=== PATIENT | female | born 1980 | race Caucasian/White ===

== ENCOUNTER 2016-05-08 23:59 | Emergency (ER) | payer BC ==
[~2016-05-08] VITALS: Ht 152.4 cm; Wt 107.5 kg
[~2016-05-08 23:59] MED LIST: DIAZ-90 PO
[2016-05-09 01:10] VITALS: Ht 152.4 cm; Wt 107.5 kg
[2016-05-09 05:25] VITALS: BP 139/94; PULSE 85; RESP 18; TEMP 97.9
[2016-05-09] MEDS ORDERED: LIDOCAINE/MYLANTA 40 ML BTL PO STA (06:11)
[2016-05-09] MEDS ORDERED: SOD CHLORIDE 0.9% 1,000 ML IV STA (06:11)
[2016-05-09] MEDS ORDERED: ONDANSETRON 4 MG INJ IV STA (06:11)
--- NOTE | 2016-05-09 06:23 | ERD ---
ER Documentation Chief Complaint Date/Time DATE: 05/09/16 Chief Complaint Abdominal pain left side and gastric reflux HPI The patient is a 35-year-old female who presents to the Emergency Department with complaint of epigastric/left upper quadrant abdominal pain. The patient reports that her symptoms have been intermittent over the past several months, worsening over the past four months, and occurring more frequently over the past two weeks. She denies any exacerbation or relieving factors. Denies any change in symptoms with food, exercise, movement, bearing down, bowel movements. She describes the pain as burning in nature that sometimes radiates through to her back. It is associated with some nausea, but no episodes of vomiting. She also notes that she feels like she has "a lot of gas, but it doesn't always come out" unless she is having a bowel movement. She has tried several home-therapies to assist in her symptoms, including ingestion of charcoal pills, tears, giovany, mint, with no significant alleviation of symptoms. The patient does state that she saw her primary medical provider regarding these symptoms in November, at which time she was told that it's likely because she is "retaining too much gas." At that time, her PMD kandi some labs, but never called the patient back with her results. The patient does note that she has been experiencing the same symptoms on and off for the past several years, and was seen in this Emergency Department for the same symptoms in 2012. She denies any chest pain, palpitations, shortness of breath , diarrhea, dizziness, weakness, fevers, chills. Denies black or bloody stools. Denies dysuria, flank pain, urinary frequency, hematuria, or vaginal discharge. ROS All systems reviewed and are negative except as per history of present illness. Medications Home Meds Active Scripts Famotidine* (Pepcid*) 20 Mg Tablet, 20 MG PO BID, #30 TAB Prov:JEANINE JIMENEZ PA-C 05/09/16 Hydrocodone/Acetaminophen (Kelly 5-325 Tablet) 1 Each Tablet, 1 EACH PO Q6, #12 TAB Prov:JEANINE JIMENEZ PA-C 05/09/16 Simethicone* (Anti-Gas/80*) 80 Mg Tab.chew, 80 MG PO Q6H Y for DISTENSION/GAS/ BLOATING, #30 TAB.CHEW Prov:JEANINE JIMENEZ PA-C 05/09/16 Diazepam* (Valium*) 5 Mg Tablet, 5 MG PO Q8 Y for ANXIETY, #10 TAB Prov:ANGELITA TORIBIO MD 08/16/15 Allergies Allergies: Coded Allergies: Penicillins (Verified Allergy, rash, short of breath, 03/11/13) PMhx/Soc History of Surgery: No Anesthesia Reaction: No Hx Neurological Disorder: No Hx Respiratory Disorders: No Hx Cardiac Disorders: No Hx Psychiatric Problems: No Hx Miscellaneous Medical Probl: No Hx Alcohol Use: No Hx Substance Use: No Hx Tobacco Use: No Smoking Status: Never smoker Physical Exam Vitals Vital Signs Date Time Temp Pulse Resp B/P Pulse Ox O2 Delivery O2 Flow Rate FiO2 05/09/16 05:25 97.9 85 18 139/94 96 Room Air 05/09/16 01:10 98.1 94 20 121/78 99 Physical Exam GENERAL: Well-developed, well-nourished, female, in no acute distress HEENT: Head is normocephalic, atraumatic. No scleral pallor or icterus. Conjunctiva pink. No scleral pallor or icterus. Moist mucous membranes. NECK: Supple. Full range of motion. RESPIRATORY: Lungs are clear to auscultation bilaterally. No rales, rhonchi or wheezing. Equal breath sounds. Normal expiratory effort. CARDIOVASCULAR: Regular rate and rhythm. S1 and S2 normal. No murmurs. Normal peripheral perfusion. GASTROINTESTINAL: Abdomen is soft, non-tender, and non-distended. No guarding, no rebound tenderness. Normal bowel sounds. No abdominal bruits. No gross peritonitis. Negative Rovsing's sign. Negative Pisano's sign. No tenderness at McBurney's point. FLANK: No CVA tenderness. BACK: No midline tenderness. EXTREMITIES: No clubbing, cyanosis, or edema. Normal skin perfusion. Moving all extremities. Muscle tone is normal. No focal swelling or erythema. NEUROLOGIC: The patient is alert, awake, and oriented x 3. No focal neurologic deficits. INTEGUMENT: Skin is intact. Warm and dry. No rashes, no petechiae present. Normal turgor. PSYCHIATRIC: Cooperative. Result Diagram: 05/09/16 0650 05/09/16 0650 Results 24 hrs Laboratory Tests Test 05/09/16 06:50 05/09/16 07:12 Alanine Aminotransferase (ALT/SGPT) 40IU/L Albumin 4.0g/dl Albumin/Globulin Ratio 1.21 Alkaline Phosphatase 101IU/L Anion Gap 17 Aspartate Amino Transf (AST/SGOT) 31IU/L Basophils # 0.110^3/ul Basophils % 0.6% Blood Urea Nitrogen 25mg/dl Calcium Level 8.8mg/dl Carbon Dioxide Level 26mmol/L Chloride Level 106mmol/L Creatinine 0.72mg/dl Direct Bilirubin 0.00mg/dl Eosinophils # 0.510^3/ul Eosinophils % 6.2% Globulin 3.30g/dl Glucose Level 110mg/dl Hematocrit 40.1% Hemoglobin 13.3g/dl Indirect Bilirubin 0.0mg/dl Lipase 149U/L Lymphocytes # 1.810^3/ul Lymphocytes % 22.9% Mean Corpuscular Hemoglobin 30.9pg Mean Corpuscular Hemoglobin Concent 33.2g/dl Mean Corpuscular Volume 93.3fl Mean Platelet Volume 9.5fl Monocytes # 1.010^3/ul Monocytes % 12.2% Neutrophils # 4.610^3/ul Neutrophils % 57.8% Nucleated Red Blood Cells # 0.010^3/ul Nucleated Red Blood Cells % 0.0/100WBC Platelet Count 41577^3/UL Potassium Level 4.1mmol/L Red Blood Count 4.3010^6/ul Red Cell Distribution Width 12.9% Sodium Level 145mmol/L Total Bilirubin 0.0mg/dl Total Protein 7.3g/dl White Blood Count 7.910^3/ul Bedside Urine Blood Negative Bedside Urine Glucose (UA) Negative Bedside Urine Ketones (LAB) Negative Bedside Urine Leukocyte Esterase (L Negative Bedside Urine Nitrite (LAB) Negative Bedside Urine Protein (LAB) Trace Bedside Urine pH (LAB) 6.0 Current Medications Medications (Trade) Dose Ordered Sig/Duy Route PRN Reason Start Time Stop Time Status Last Admin Dose Admin Sodium Chloride (NS) 1,000 ml @ 1,000 mls/hr Q1H STAT IV 05/09/16 06:11 05/09/16 07:10 DC 05/09/16 07:00 Ondansetron HCl (Zofran Inj) 4 mg ONCE STAT IV 05/09/16 06:11 05/09/16 06:14 DC 05/09/16 07:00 Miscellaneous Medication (Gi Cocktail (2)) 40 ml ONCE STAT PO 05/09/16 06:11 05/09/16 06:14 DC 05/09/16 06:59 Pantoprazole (Protonix Iv) 40 mg ONCE ONCE IV 05/09/16 06:30 05/09/16 06:31 DC 05/09/16 07:00 Morphine Sulfate (morphine) 6 mg ONCE STAT IV 05/09/16 07:13 05/09/16 07:14 DC 05/09/16 07:24 Procedures/MDM EMERGENCY DEPARTMENT COURSE: The patient was stable throughout the ER course. IV access established by nursing staff. The patient was given 1 L NaCl, 4 mg Zofran IV, 4 mg Morphine, 40 mg Protonix IV and a GI cocktail. Laboratory testing performed. Upon reassessment, the patient remained stable, and stated that symptoms had significantly improved. She had no episodes of emesis or diarrhea while in the emergency department. MEDICAL DECISION MAKING: This is a 35-year-old female presenting to the Emergency Department with complaint of intermittent left upper quadrant/ epigastric abdominal pain, with associated nausea for the past several months ( actually ongoing since 2012). On physical examination, the patient had no significant abnormalities noted, and vital signs were stable. Differential diagnosis includes, but is not limited to, gastroenteritis, gastritis, cholecystitis, cholangitis, choledocholithiasis, pancreatitis, perforated viscus , mesenteric ischemia, GERD, PUD, urinary tract infection, pyelonephritis, hepatitis, IBD, torsion, bowel obstruction, appendicitis, diverticulitis. No significant abnormalities were noted on laboratory testing performed. After rest and administration of fluids and medications, the patient reports no new complaints and much decreased pain and symptoms. Upon review and interpretation of the patient's presentation and overall ER course, I believe the patient's symptoms are most consistent with abdominal pain , uncertain etiology, but possibly secondary to gastritis vs. peptic ulcer disease. I doubt cholecystitis, no right upper quadrant tenderness, normal bilirubin/LFTs, negative Pisano's sign. Doubt pancreatitis - clinical presentation inconsistent, lipase within normal limits. Doubt perforated ulcer, patient has a non-surgical abdomen. Doubt small bowel obstruction, patient is passing flatus, abdomen is non-distended. Doubt appendicitis, patient has no McBurney's point tenderness, no guarding, non-surgical abdomen, no tenderness over the RLQ. Doubt diverticulitis, exam inconsistent. Doubt ischemic bowel, no pain out of proportion to examination. Doubt torsion, symptoms and examination inconsistent. At this time, the patient is in stable condition and therefore she can be discharged home with prescriptions for Pepcid, Kelly, Simethicone, and strict return precautions for signs of deteriorating or worsening condition. She is advised to follow up with her primary care provider in 2-3 days for reevaluation and further management, or return to the ER sooner if symptoms worsen. Additionally, I recommended that she follow up with a GI specialist for further evaluation and possible endoscopy. I shared my medical decision making , plan, as well as the results with the patient at length and in great detail, and she verbally understands and agrees with the plan for further observation and care as an outpatient. At the time of discharge, all questions were answered. Departure Diagnosis: Primary Impression: Left upper quadrant abdominal pain of unknown etiology Condition: Stable Patient Instructions: Abdominal Pain, Gastritis (Adult), Gastritis Vs. Ulcer, Treating Gastritis Additional Instructions: Follow up with your primary medical provider in 2-3 days for reevaluation and further management. Please discuss obtaining a referral to a GI specialist for endoscopy. Return to the ED sooner for any new or worsening symptoms. JEANINE JIMENEZ PA-C May 09, 2016 06:23
[2016-05-09] MEDS ORDERED: PANTOPRAZOLE 40 MG INJ IV ONE (06:30)
[2016-05-09 07:11] LABS: URINE BLOOD (Dip) POC Negative (NEGATIVE)
[2016-05-09] MEDS ORDERED: morphine 4 MG/ML VIAL IV STA (07:13)
[2016-05-09 07:27] LABS: ADD SCAN DIFF NO
[2016-05-09 07:31] LABS: BASOPHIL # 0.1 10^3/ul (0.0-0.1); BASOPHILS % 0.6 % (0.0-2.0); EOSINOPHILS # 0.5 10^3/ul (0.0-0.5); EOSINOPHILS % 6.2 % (0.0-7.0); HEMATOCRIT 40.1 % (37.0-47.0); HEMOGLOBIN 13.3 g/dl (12.0-16.0); LYMPHOCYTES # 1.8 10^3/ul (0.8-2.9); LYMPHOCYTES % 22.9 % (15.0-51.0); MEAN CORPUSCULAR HEMOGLOBIN 30.9 pg (29.0-33.0); MEAN CORPUSCULAR HGB CONC 33.2 g/dl (32.0-37.0); MEAN CORPUSCULAR VOLUME 93.3 fl (82.0-101.0); MEAN PLATELET VOLUME 9.5 fl (7.4-10.4); MONOCYTES % 12.2 % (0.0-11.0); NEUTROPHIL # 4.6 10^3/ul (1.6-7.5); NEUTROPHILS % 57.8 % (39.0-77.0); PLATELET COUNT 300 10^3/UL (140-415); RED CELL DISTRIBUTION WIDTH 12.9 % (11.5-14.5); WHITE BLOOD COUNT 7.9 10^3/ul (4.8-10.8)
[2016-05-09 07:51] LABS: POTASSIUM 4.1 mmol/L (3.5-5.1)
[2016-05-09 07:53] LABS: ALBUMIN/GLOBULIN RATIO 1.21; CREATININE 0.72 mg/dl (0.44-1.00); TOTAL PROTEIN 7.3 g/dl (6.1-8.1)
[2016-05-09 07:54] LABS: CALCIUM 8.8 mg/dl (8.4-10.2)
[2016-05-09] MEDS ORDERED: SIME80TA PO (08:30)
[2016-05-09] MEDS ORDERED: HYDR-906 PO (08:30)
[2016-05-09] MEDS ORDERED: FAMO-18 PO (08:30)
== END 2016-05-09 09:28 | disposition home or self-care (01) ==
LOC: FTE 23:59
DX: R10.12 Left upper quadrant pain (principal); R11.0 Nausea; R10.2 Pelvic and perineal pain
CPT/HCPCS: 36415; 80053; 81003; 83690; 85025; 96374; 96375; 99284; C9113; J2270; J2405; J7030; Z7610

== ENCOUNTER 2016-09-15 22:51 | Emergency (ER) | payer BC ==
[~2016-09-15] VITALS: Ht 152.4 cm; Wt 109.5 kg
[~2016-09-15 22:51] MED LIST changes: +FAMO-96 PO; +HYDR-906 PO; +SIME80TA PO
[2016-09-15 22:55] VITALS: Ht 152.4 cm; Wt 109.5 kg
[2016-09-15] MEDS ORDERED: CLOT30CR24 TOP (23:49)
[2016-09-15] MEDS ORDERED: FLUC150T17 PO (23:49)
--- NOTE | 2016-09-15 23:57 | ERD ---
ER Documentation Chief Complaint Date/Time DATE: 09/15/16 TIME: 23:54 Chief Complaint wound/blisters underneath bilateral breast states "draining liquid no pus" HPI 36-year-old female presents here in emergency department for complaints of redness rash blisters under her breast area for one week now, patient was seen by her doctor, was diagnosed to have Pati infection, was given nystatin, she was using a it, it got better, started to have the symptoms again in the last 2 days. Patient's complete no pain burning pain 4/10 scale, is worse upon touching the area. Patient denies any purulent discharge. Patient denies any fever or chills. ROS All systems reviewed and are negative except as per history of present illness. Medications Home Meds Active Scripts Clotrimazole* (Clotrimazole* AF) 1% - 30 Gm Cream.gm., 1 APPLIC TOP BID for 7 Days, TUB Prov:MILAGRO CHARLTON NP 09/15/16 Fluconazole* (Diflucan*) 150 Mg Tablet, 150 MG PO ONCE, #1 TAB Prov:MILAGRO CHARLTON NP 09/15/16 Famotidine* (Pepcid*) 20 Mg Tablet, 20 MG PO BID, #30 TAB Prov:JEANINE JIMENEZ PA-C 05/09/16 Hydrocodone/Acetaminophen (Zillah 5-325 Tablet) 1 Each Tablet, 1 EACH PO Q6, #12 TAB Prov:JEANINE JIMENEZ PA-C 05/09/16 Simethicone* (Anti-Gas/80*) 80 Mg Tab.chew, 80 MG PO Q6H Y for DISTENSION/GAS/ BLOATING, #30 TAB.CHEW Prov:JEANINE JIMENEZ PA-C 05/09/16 Diazepam* (Valium*) 5 Mg Tablet, 5 MG PO Q8 Y for ANXIETY, #10 TAB Prov:ANGELITA TORIBIO MD 08/16/15 Allergies Allergies: Coded Allergies: Penicillins (Verified Allergy, Unknown, rash, short of breath, 09/15/16) PMhx/Soc Medical and Surgical Hx: pt denies Medical Hx History of Surgery: Yes ( x 2) Anesthesia Reaction: No Hx Neurological Disorder: No Hx Respiratory Disorders: No Hx Cardiac Disorders: No Hx Psychiatric Problems: No Hx Miscellaneous Medical Probl: No Hx Alcohol Use: No Hx Substance Use: No Hx Tobacco Use: No Smoking Status: Never smoker FmHx Family History: No coronary disease, No diabetes, No other Physical Exam Vitals Vital Signs Date Time Temp Pulse Resp B/P Pulse Ox O2 Delivery O2 Flow Rate FiO2 09/15/16 22:55 98.5 65 22 125/66 99 Physical Exam GENERAL: The patient is well developed and appropriate for usual state of health, in no apparent distress. CHEST: Clear to auscultation bilaterally. There are no rales, wheezes or rhonchi. HEART: Regular rate and rhythm. No murmurs, clicks, rubs or gallops. No S3 or S4. ABDOMEN: Soft, nontender and nondistended. Good bowel sounds. No rebound or guarding. No gross peritonitis. No gross organomegaly or masses. No Pisano sign or McBurney point tenderness. BACK: No midline or flank tenderness. EXTREMITIES: Equal pulses bilaterally. There is no peripheral clubbing, cyanosis or edema. No focal swelling or erythema. Full range of motion. Grossly neurovascularly intact. NEURO: Alert and oriented. Cranial nerves 2-12 intact. Motor strength in all 4 extremities with 5/5 strength. Sensation grossly intact. Normal speech and gait. SKIN: Noted macerated skin erythema with satellite lesions noted on the skin under the breast areas. There is no apparent ecchymosis or petechia. The skin is warm and dry. HEMATOLOGIC AND LYMPHATIC: There is no evidence of excessive bruising or lymphedema. No gross cervical, axillary, or inguinal lymphadenopathy. Procedures/MDM Medical decision making: Patient's symptoms most likely is consistent with intertrigo candidiasis. No suspicion for any MRSA infection. No suspicion for any cellulitis. Patient was given a prescription for clotrimazole 1% cream, Diflucan, to follow-up with primary care doctor in 2 days for reevaluation of symptoms. Patient was advised to return to emergency department for any worsening symptoms. Departure Diagnosis: Primary Impression: Intertriginous candidiasis Condition: Stable Patient Instructions: Pati Skin Infection (Adult) MILAGRO CHARLTON NP Sep 15, 2016 23:57
== END 2016-09-15 23:58 | disposition home or self-care (01) ==
LOC: FTE 22:51
DX: B37.2 Candidiasis of skin and nail (principal)
CPT/HCPCS: 99283

== ENCOUNTER 2016-11-04 19:19 | Emergency (ER) | payer BC ==
[~2016-11-04] VITALS: Ht 152.4 cm; Wt 111.0 kg
[~2016-11-04 19:19] MED LIST changes: +CLOT30CR24 TOP; +FLUC150T17 PO
[2016-11-04 19:21] VITALS: Ht 152.4 cm; Wt 111.0 kg
[2016-11-04] MEDS ORDERED: HYDROCODONE/APAP (10/325) TAB PO ONE (21:00)
--- NOTE | 2016-11-04 21:12 | ERD ---
ER Documentation Chief Complaint Date/Time DATE: 11/04/16 TIME: 21:08 Chief Complaint sp fall 3 step stairs 2 days ago, c/o both foot pain HPI 36-year-old female presents here in emergency department for complaints of bilateral lower leg pain bruising for 2 days after falling off 3 steps in the stage. Patient's complaining of multiple bruises and lower extremities, throbbing pain, 6/10 scale, worse upon movement and touching the area. More painful on the right ankle also unable to do full range of motion of the right ankle because of pain and swelling. Patient also is complaining of bilateral knee pain, Throbbing pain 6/10 scale, accompanying the other symptoms. Patient denies any numbness or tingling. Patient denies any fever or chills. Patient has a history of right DVT and is worried about this. Patient did not take any medications for pain. ROS All systems reviewed and are negative except as per history of present illness. Medications Home Meds Active Scripts Hydrocodone/Acetaminophen ([place] 5-325 Tablet) 1 Each Tablet, 1 TAB PO Q6H Y for SEVERE PAIN LEVEL 7-10, #20 TAB Prov:MILAGRO CHARLTON NP 11/04/16 Ibuprofen* (Motrin*) 600 Mg Tab, 600 MG PO Q6H Y for PAIN AND OR ELEVATED TEMP, #30 TAB Prov:MILAGRO CHARLTON NP 11/04/16 Clotrimazole* (Clotrimazole* AF) 1% - 30 Gm Cream.gm., 1 APPLIC TOP BID for 7 Days, TUB Prov:MILAGRO CHARLTON NP 09/15/16 Fluconazole* (Diflucan*) 150 Mg Tablet, 150 MG PO ONCE, #1 TAB Prov:MILAGRO CHARLTON NP 09/15/16 Famotidine* (Pepcid*) 20 Mg Tablet, 20 MG PO BID, #30 TAB Prov:JEANINE JIMENEZ PA-C 05/09/16 Hydrocodone/Acetaminophen ([place] 5-325 Tablet) 1 Each Tablet, 1 EACH PO Q6, #12 TAB Prov:JEANINE JIMENEZ PA-C 05/09/16 Simethicone* (Anti-Gas/80*) 80 Mg Tab.chew, 80 MG PO Q6H Y for DISTENSION/GAS/ BLOATING, #30 TAB.CHEW Prov:BARBARAJEANINE CHEN 05/09/16 Diazepam* (Valium*) 5 Mg Tablet, 5 MG PO Q8 Y for ANXIETY, #10 TAB Prov:ANGELITA TORIBIO MD 08/16/15 Allergies Allergies: Coded Allergies: Penicillins (Verified Allergy, Unknown, rash, short of breath, 09/15/16) PMhx/Soc History of Surgery: Yes ( x 2) Anesthesia Reaction: No Hx Neurological Disorder: No Hx Respiratory Disorders: No Hx Cardiac Disorders: No Hx Psychiatric Problems: No Hx Miscellaneous Medical Probl: No Hx Alcohol Use: No Hx Substance Use: No Hx Tobacco Use: No Smoking Status: Never smoker FmHx Family History: No coronary disease, No diabetes, No other Physical Exam Vitals Vital Signs Date Time Temp Pulse Resp B/P Pulse Ox O2 Delivery O2 Flow Rate FiO2 11/04/16 23:24 62 18 112/78 100 Room Air 11/04/16 19:21 98.0 80 20 142/70 100 Physical Exam GENERAL: The patient is well developed and appropriate for usual state of health, in no apparent distress. CHEST: Clear to auscultation bilaterally. There are no rales, wheezes or rhonchi. HEART: Regular rate and rhythm. No murmurs, clicks, rubs or gallops. No S3 or S4. ABDOMEN: Soft, nontender and nondistended. Good bowel sounds. No rebound or guarding. No gross peritonitis. No gross organomegaly or masses. No Pisano sign or McBurney point tenderness. BACK: No midline or flank tenderness. EXTREMITIES: Unable to do full range of motion of her ankle because of pain and swelling, tenderness on palpation noted. Bilateral lower leg noted to be swelling, right more than left. Noted multiple bruising in bilateral lower extremities, able to do full range of motion of bilateral knees without any restriction. Equal pulses bilaterally. There is no peripheral clubbing, cyanosis or edema. No focal swelling or erythema. Full range of motion. Grossly neurovascularly intact. NEURO: Alert and oriented. Cranial nerves 2-12 intact. Motor strength in all 4 extremities with 5/5 strength. Sensation grossly intact. Normal speech and gait. SKIN: Noted multiple ecchymosis in the right and left lower extremities, there is a possible blood blister 3 x 5 cm ecchymosis and induration in the right lower leg. . The skin is warm and dry. HEMATOLOGIC AND LYMPHATIC: There is no evidence of excessive bruising or lymphedema. No gross cervical, axillary, or inguinal lymphadenopathy. Results 24 hrs Current Medications Medications (Trade) Dose Ordered Sig/Duy Route PRN Reason Start Time Stop Time Status Last Admin Dose Admin Acetaminophen/ Hydrocodone Bitart ([place] (10/446)) 1 tab ONCE ONCE PO 11/04/16 21:00 11/04/16 21:01 DC 11/04/16 21:54 Patient was given medication for pain here in emergency department, after treatment, patient verbalized feeling much better. Patient's pain is improved. PROCEDURE: US right lower extremity venous Doppler CLINICAL INDICATION: Right leg swelling TECHNIQUE: Multiple sonographic images of the right lower extremity deep venous system was obtained utilizing grayscale, color-flow, compressive sonography and Doppler imaging with augmentation. COMPARISON: No pertinent prior examinations were submitted for comparison. FINDINGS: There is normal compressibility and flow within the right common femoral, superficial femoral, and popliteal veins. The posterior tibial and peroneal veins are not well visualized due to extensive edema. IMPRESSION: No sonographic evidence for deep venous thrombosis. RPTAT: HIKT .Calixto Paige MD, MD Date Time Electronically viewed and signed by .Calixto Paige MD, on 11/04/2016 21:17 .T/ CC: MIALGRO CHARLTON TANK COOPER PROCEDURE: XR Tibia and Fibula. CLINICAL INDICATION: Fall, pain TECHNIQUE: AP, lateral and oblique views of the left tibia and fibula were obtained. COMPARISON: No prior studies are available for comparison. FINDINGS: There is normal mineralization and alignment. No fracture or osseous lesion is identified. The joints are unremarkable. There are normal soft tissues without evidence of soft tissue swelling. IMPRESSION: Normal left tibia and fibula. No visualized fracture or dislocation. RPTAT: HBST .Dani Almazan MD, Date Time Electronically viewed and signed by .Dani Almazan MD, MD on 11/04/2016 22:10 .T/ CC: MILAGRO CHARLTON TANK COOPER AMENDMENT: 11/05/2016 12:32:30 AM Inez Castillo M.D Due to an IT issue, there was a delay in the report being available to the provider. Findings were discussed with provider Zulma Hassan by Dr Inez Castillo November 04, 2016 at 11:10 PM. PROCEDURE: Right lower extremity ultrasound CLINICAL INDICATION: Right lower extremity swelling. Evaluate for blood blister. TECHNIQUE: Multiple transverse longitudinal limon scale images were performed right lower extremity at the site of this patient's symptom with color Doppler. COMPARISON: None available FINDINGS: There is soft tissue swelling in the right lower extremity at the site of the patient's symptoms. There is a 0.7 x 0.9 x 1 cm complex fluid collection within the subcutaneous fat without hyperemia. IMPRESSION: 1 cm complex fluid collection in the subcutaneous fat at the site of the patient 's symptoms may represent a hematoma or small abscess. Recommended clinical correlation and follow up to document resolution. RPTAT: HCTS Physician Shawna Date Time Electronically viewed and signed by Physician Shawna on 11/05/2016 00: 33 CS/ CC: MILAGRO CHARLTON NP PROCEDURE: XR Ankle. CLINICAL INDICATION: Left ankle pain. Fall. TECHNIQUE: Three views of the left ankle. COMPARISON: None available. FINDINGS: No acute fracture or dislocation is identified. Normal alignment on this non- stressed view. The joint spaces are preserved. Negative for significant soft tissue swelling.. IMPRESSION: Negative for evidence of acute fracture or dislocation of theleft ankle. RPTAT: HCTS Maribell Castillo Physician Date Time Electronically viewed and signed by Physician Shawna on 11/05/2016 00: 17 CS/ CC: MILAGRO CHARLTON TANK COOPER PROCEDURE: XR Tibia and Fibula. CLINICAL INDICATION: Fall appear Pain. TECHNIQUE: AP and lateral views of the right tibia and fibula. COMPARISON: None available. FINDINGS: No acute fracture or dislocation is identified. The joint spaces are unremarkable. There is lateral and anterior soft tissue swelling.. IMPRESSION: Negative for acute fracture or dislocation of the right tibia and fibula. RPTAT: HCTS Maribell Castillo, Physician Date Time Electronically viewed and signed by Physician Shawna on 11/05/2016 00: 31 CS/ CC: MILAGRO CHARLTON TANK COOPER PROCEDURE: XR bilateral knees. CLINICAL INDICATION: 36-year-old male . Fall. General pain. TECHNIQUE: Six views of the bilateral knees. COMPARISON: None available FINDINGS: Right knee: There is no acute fracture or dislocation. Mild patellofemoral arthritis. The remaining joint spaces are preserved. No joint effusion is identified. Left knee: There is no acute fracture or dislocation. Mild patellofemoral osteoarthritis. Remaining joint spaces are preserved. No joint effusion is identified. IMPRESSION: No acute fracture or dislocation of the bilateral knees.> RPTAT: HCTS Maribell Castillo Physician Date Time Electronically viewed and signed by Physician Shawna on 11/05/2016 00: 17 CS/ CC: MILAGRO CHARLTON NP Procedures/MDM Medical Decision Making: Patient's pain is most likely consistent with a multiple contusions on affected area and bilateral knee sprain and ankle sprain. There is no suspicion for neurovascular compromise. Patient has intact sensation and circulation of the affected extremity. There is low suspicion for septic arthritis. Patient does not have any fever. Radiology exams of the affected area does not show any fracture or dislocation. Disposition: Home. Patient is given prescription for ibuprofen for to moderate pain, [place] for severe pain. Patient was advised to elevate the affected area and apply ice on affected area. Patient was advised that if symptoms are worse , numbness, tingling, high fever, unable to move joint, worsening symptoms, to return to emergency department immediately. Otherwise, patient is advised to follow up with the primary care doctor in 5-7 days for reevaluation of symptoms. Departure Diagnosis: Primary Impression: Multiple leg contusions Encounter type: initial encounter Laterality: unspecified laterality Qualified Code: S80.10XA - Multiple leg contusions, unspecified laterality, initial encounter Additional Impressions: Knee pain, bilateral Chronicity: acute Qualified Code: M25.561 - Acute pain of both knees Ankle sprain Encounter type: initial encounter Involved ligament of ankle: unspecified ligament Laterality: right Qualified Code: S93.401A - Sprain of right ankle , unspecified ligament, initial encounter Condition: Stable Patient Instructions: Contusion, Lower Extremity, Knee Sprain, Sprain, Ankle, With X-Ray Additional Instructions: Patient is given prescription for ibuprofen for to moderate pain, [place] for severe pain. Patient was advised to elevate the affected area and apply ice on affected area. Patient was advised that if symptoms are worse, numbness, tingling, high fever, unable to move joint, worsening symptoms, to return to emergency department immediately. Otherwise, patient is advised to follow up with the primary care doctor in 5-7 days for reevaluation of symptoms. MILAGRO CHARLTON NP Nov 04, 2016 21:12
--- NOTE | 2016-11-04 21:17 | RADRPT ---
PROCEDURE: US right lower extremity venous Doppler CLINICAL INDICATION: Right leg swelling TECHNIQUE: Multiple sonographic images of the right lower extremity deep venous system was obtaine d utilizing grayscale, color-flow, compressive sonography and Doppler imaging with augmentation. COMPARISON: No pertinent prior examinations were submitted for comparison. FINDINGS: There is normal compressibility and flow within the right common femoral, superficial femoral, and p opliteal veins. The posterior tibial and peroneal veins are not well visualized due to extensive ed sameer. IMPRESSION: No sonographic evidence for deep venous thrombosis. RPTAT: HIKT .Calixto Paige MD, MD Date Time Electronically viewed and signed by .Calixto Paige MD, on 11/04/2016 21:17 .T/
--- NOTE | 2016-11-04 22:10 | RADRPT ---
PROCEDURE: XR Tibia and Fibula. CLINICAL INDICATION: Fall, pain TECHNIQUE: AP, lateral and oblique views of the left tibia and fibula were obtained. COMPARISON: No prior studies are available for comparison. FINDINGS: There is normal mineralization and alignment. No fracture or osseous lesion is identified. The joint s are unremarkable. There are normal soft tissues without evidence of soft tissue swelling. IMPRESSION: Normal left tibia and fibula. No visualized fracture or dislocation. RPTAT: HBST .Dani Almazan MD, Date Time Electronically viewed and signed by .Dani Almazan MD, on 11/04/2016 22:10 .T/
[2016-11-04] MEDS ORDERED: HYDR-906 PO (23:18)
[2016-11-04] MEDS ORDERED: IBUP-1542 PO (23:18)
[2016-11-04 23:24] VITALS: BP 112/78; PULSE 62; RESP 18
--- NOTE | 2016-11-05 00:17 | RADRPT ---
AMENDMENT: 11/05/2016 12:32:30 AM Inez Castillo M.D Due to an IT issue, there was a delay in the report being available to the provider. Findings were discussed with provider Zulma Hassan by Dr Inez Castillo November 04, 2016 at 11:10 PM. PROCEDURE: Right lower extremity ultrasound CLINICAL INDICATION: Right lower extremity swelling. Evaluate for blood blister. TECHNIQUE: Multiple transverse longitudinal limon scale images were performed right lower extremity a t the site of this patient's symptom with color Doppler. COMPARISON: None available FINDINGS: There is soft tissue swelling in the right lower extremity at the site of the patient's symptoms. T here is a 0.7 x 0.9 x 1 cm complex fluid collection within the subcutaneous fat without hyperemia. IMPRESSION: 1 cm complex fluid collection in the subcutaneous fat at the site of the patient's symptoms may repr esent a hematoma or small abscess. Recommended clinical correlation and follow up to document resol ution. RPTAT: HCTS Physician Shawna Date Time Electronically viewed and signed by Physician Shawna on 11/05/2016 00:33 /
--- NOTE | 2016-11-05 00:17 | RADRPT ---
PROCEDURE: XR bilateral knees. CLINICAL INDICATION: 36-year-old male . Fall. General pain. TECHNIQUE: Six views of the bilateral knees. COMPARISON: None available FINDINGS: Right knee: There is no acute fracture or dislocation. Mild patellofemoral arthritis. The remainin g joint spaces are preserved. No joint effusion is identified. Left knee: There is no acute fracture or dislocation. Mild patellofemoral osteoarthritis. Remaini ng joint spaces are preserved. No joint effusion is identified. IMPRESSION: No acute fracture or dislocation of the bilateral knees.> RPTAT: HCTS Physician Shawna Date Time Electronically viewed and signed by Maribell Castillo Physician on 11/05/2016 00:17 /
--- NOTE | 2016-11-05 00:17 | RADRPT ---
PROCEDURE: XR Ankle. CLINICAL INDICATION: Left ankle pain. Fall. TECHNIQUE: Three views of the left ankle. COMPARISON: None available. FINDINGS: No acute fracture or dislocation is identified. Normal alignment on this non-stressed view. The rubin int spaces are preserved. Negative for significant soft tissue swelling.. IMPRESSION: Negative for evidence of acute fracture or dislocation of theleft ankle. RPTAT: HCTS Physician Shawna Date Time Electronically viewed and signed by Maribell Castillo Physician on 11/05/2016 00:17 CS/
--- NOTE | 2016-11-05 00:31 | RADRPT ---
PROCEDURE: XR Tibia and Fibula. CLINICAL INDICATION: Fall appear Pain. TECHNIQUE: AP and lateral views of the right tibia and fibula. COMPARISON: None available. FINDINGS: No acute fracture or dislocation is identified. The joint spaces are unremarkable. There is latera l and anterior soft tissue swelling.. IMPRESSION: Negative for acute fracture or dislocation of the right tibia and fibula. RPTAT: HCTS Physician Shawna Date Time Electronically viewed and signed by Maribell Castillo Physician on 11/05/2016 00:31 CS/
== END 2016-11-04 23:24 | disposition home or self-care (01) ==
LOC: FTE 19:19
DX: S80.11XA Contusion of right lower leg, initial encounter (principal); S80.12XA Contusion of left lower leg, initial encounter; S93.401A Sprain of unspecified ligament of right ankle, initial encounter; W10.9XXA Fall (on) (from) unspecified stairs and steps, initial encounter; Y92.9 Unspecified place or not applicable
CPT/HCPCS: 73564; 73590; 73610; 76536; 93971; 99285; Z7610

== ENCOUNTER 2016-11-15 20:36 | Emergency (ER) | payer BC ==
[~2016-11-15] VITALS: Ht 152.4 cm; Wt 111.0 kg
[~2016-11-15 20:36] MED LIST changes: +IBUP-1542 PO
[2016-11-15 21:01] VITALS: Ht 152.4 cm; Wt 111.0 kg
[2016-11-15] MEDS ORDERED: HYDROCODONE/APAP (10/325) TAB PO ONE (23:00)
[2016-11-15] MEDS ORDERED: CLINDAMYCIN 300 MG CAP PO ONE (23:00)
--- NOTE | 2016-11-15 23:40 | ERD ---
ER Documentation Chief Complaint Date/Time DATE: 11/15/16 TIME: 22:43 Chief Complaint s/p fall last week, injured right foot, came to ER last wk. foot still pain HPI This 36-year-old female presents to emergency department today for right foot pain, swelling, right leg red, warmth, symptoms started after fall 3 weeks ago. ROS All systems reviewed and are negative except as per history of present illness. Medications Home Meds Active Scripts Hydrocodone/Acetaminophen (Mcdonough 5-325 Tablet) 1 Each Tablet, 1 TAB PO Q6H Y for PAIN, #20 TAB Prov:RAJEEV,PONCHO 11/16/16 Clindamycin Hcl* (Cleocin*) 300 Mg Cap, 300 MG PO QID for 10 Days, CAP Prov:RAJEEV,PONCHO 11/16/16 Hydrocodone/Acetaminophen (Mcdonough 5-325 Tablet) 1 Each Tablet, 1 TAB PO Q6H Y for SEVERE PAIN LEVEL 7-10, #20 TAB Prov:MILAGRO CHARLTON NP 11/04/16 Ibuprofen* (Motrin*) 600 Mg Tab, 600 MG PO Q6H Y for PAIN AND OR ELEVATED TEMP, #30 TAB Prov:MILAGRO CHARLTON [employer] 11/04/16 Clotrimazole* (Clotrimazole* AF) 1% - 30 Gm Cream.gm., 1 APPLIC TOP BID for 7 Days, TUB Prov:MILAGRO CHARLTON NP 09/15/16 Fluconazole* (Diflucan*) 150 Mg Tablet, 150 MG PO ONCE, #1 TAB Prov:MILAGRO CHARLTON [employer] 09/15/16 Famotidine* (Pepcid*) 20 Mg Tablet, 20 MG PO BID, #30 TAB Prov:JEANINE JIMENEZ PA-C 05/09/16 Hydrocodone/Acetaminophen (Mcdonough 5-325 Tablet) 1 Each Tablet, 1 EACH PO Q6, #12 TAB Prov:JEANINE JIMENEZ PA-C 05/09/16 Simethicone* (Anti-Gas/80*) 80 Mg Tab.chew, 80 MG PO Q6H Y for DISTENSION/GAS/ BLOATING, #30 TAB.CHEW Prov:JEANINE JIMENEZ PA-C 05/09/16 Diazepam* (Valium*) 5 Mg Tablet, 5 MG PO Q8 Y for ANXIETY, #10 TAB Prov:ANGELITA TORIBIO MD 08/16/15 Allergies Allergies: Coded Allergies: Penicillins (Verified Allergy, Unknown, rash, short of breath, 09/15/16) PMhx/Soc History of Surgery: Yes ( x 2) Anesthesia Reaction: No Hx Neurological Disorder: No Hx Respiratory Disorders: No Hx Cardiac Disorders: No Hx Psychiatric Problems: No Hx Miscellaneous Medical Probl: No Hx Alcohol Use: No Hx Substance Use: No Hx Tobacco Use: No Smoking Status: Never smoker Physical Exam Vitals Vital Signs Date Time Temp Pulse Resp B/P Pulse Ox O2 Delivery O2 Flow Rate FiO2 11/16/16 02:22 87 20 128/63 99 11/15/16 21:01 98.7 74 20 134/63 99 Vitals stable, triage notes reviewed Physical Exam Const: Well-nourished well appearing obese female obvious discomfort no acute distress Head: Eyes: ENT: Neck: . Cardio: Skin: Back: Ext: Lower Extremity -right lower extremity Skin: No laceration, gross nonpitting pedal edema, lower extremity edema +1. Red hot erythemic plaque noted distal tibia Compartments: Soft Motor: Full active range of motion hip/knee/ankle/foot Sensation: Full sensation anterior, posterior, lateral aspect of lower extremity Bones: Nontender pelvis/knee/proximal tibia/ malleoli/foot Joints: No effusion or laxity Pulses/Perfusion: 1+ DP, Neur: Awake and alert Psych: Normal Mood and Affect Results 24 hrs Current Medications Medications (Trade) Dose Ordered Sig/Duy Route PRN Reason Start Time Stop Time Status Last Admin Dose Admin Acetaminophen/ Hydrocodone Bitart (Mcdonough (10/325)) 1 tab ONCE ONCE PO 11/15/16 23:00 11/15/16 23:01 DC 11/15/16 22:55 Clindamycin HCl (Cleocin) 300 mg ONCE ONCE PO 11/15/16 23:00 11/15/16 23:01 DC 11/15/16 23:08 Procedures/MDM PROCEDURE: Ultrasound right leg limited, non - vascular CLINICAL INDICATION: Right leg abscess or hematoma. Follow-up evaluation TECHNIQUE: Real time sonographic imaging in the area of interest of the right leg is performed and a total of 15 limon scale as well as Doppler images are submitted for review COMPARISON: 11/04/2016 FINDINGS: Interval enlargement of the irregularly marginated centrally hyperechoic collection from a prior 1 cm estimation to a current of 3.3 x 2.2 x 0.9 cm measurement. In addition, there is a second toe collection that measures approximately 2 x 1.7 x 0.7 cm not visible previously. RPTAT:HJJR IMPRESSION: Interval enlargement of what are likely abscesses in the area of interest of the right leg, the largest approximately 3.2 cm, previously 1 cm on the study of 11/04/2016. A second smaller abscess not evident previously is now suspected. Continued follow-up is recommended. Electronically viewed and signed by Physician Fred on 11/15/2016 23:50 PROCEDURE: XR Foot. CLINICAL INDICATION: Hematoma/abscess TECHNIQUE: AP, lateral and oblique views of the right foot was obtained. The images were reviewed on a PACS workstation. COMPARISON: 10/13/2012 FINDINGS: There is dorsal forefoot soft tissue swelling not seen on the previous study. No acute fracture or dislocation is seen. There is no specific evidence of osteomyelitis seen on plain radiographs. IMPRESSION: There is dorsal forefoot soft tissue swelling not seen on the previous study. Medial and lateral foot soft tissue swelling appears to be increased compared to previous study. No acute fracture or dislocation is seen. There is no specific evidence of osteomyelitis seen on plain radiographs. Electronically viewed and signed by .Duong Oshea MD, MD on 11/16/2016 00:07 This 36-year-old female presents to emergency department today for right leg pain. Patient reports that she fell off a stage and missed 3 steps 2-3 weeks ago. Patient was seen and evaluated here in emergency department had radiographic imaging negative for fracture was treated for pain. Patient reports that symptoms had been improving until recently when she noticed a red hot plaque on the top of her l right leg, and swelling of her right foot. Patient reports pain with ambulating. Denies nausea, vomiting, fever, or chills. I have little suspicion for compartment syndrome, metatarsal fracture, deep vein thrombosis, contact dermatitis, patient will have repeat x-ray to rule out fracture, right foot x-ray findings there is dorsal forefoot soft tissue swelling not seen in previous study, medial and lateral foot soft tissue swelling appears to be increased compared to previous study no acute fracture or dislocation seen. There is no specific evidence of osteomyelitis seen on plain radiographs. Patient has ultrasound of right leg with impression of interval enlargement of what is likely abscess in the area of interest of the right leg, largest approximately 3.2 cm previously 1 cm study from 11/04 2016 second smaller abscess not evident previously now is suspected continue follow- up is recommended. Patient will be started on p.o. antibiotics, first dose given tonight in emergency department, clindamycin 300 mg. Patient sent home with continued therapy, follow-up with primary care physician for repeat follow- up ultrasound if indicated. Return to emergency department if symptoms fail to improve as anticipated. I feel the patient is stable for discharge at this time. I have discussed results, examination findings, the treatment plan with the patient and family present prior to discharge. Indications for emergent reevaluation, side effects of medication were also discussed. All questions were answered. Patient verbalizes understanding and agrees with plan of care. Departure Diagnosis: Primary Impression: Cellulitis Site of cellulitis: extremity Site of cellulitis of extremity: lower extremity Laterality: right Qualified Code: L03.115 - Cellulitis of right lower extremity Additional Impression: Abscess Condition: Good Patient Instructions: Abscess, Antiobiotic Treatment Only, Cellulitis Additional Instructions: Thank you for for coming to [facility] for your care today. Please ask your nurse or provider if you have questions about your care today and do not leave until all your questions have been answered. Please use any medications given as directed and follow-up with your doctor (or the doctor you were referred to) in the next 2-3 days. If you do not have a primary care doctor you may follow [place] [facility] [place] ([place] You may also use motrin and tylenol as needed for fever and/or pain unless instructed otherwise by your provider or nurse. Indications for more urgent follow-up have been discussed, but you may return to the Emergency Department at ANY time for any worrisome or worsening symptoms. If you have abdominal pain, please know that no test or exam you received is perfect and you should follow up within 8 hours for continued pain. If you had any imaging studies today, such as an X-Ray or CT Scan, these studies will be reviewed later by a radiologist. You will be called if there are important findings that were not identified today, so make sure the contact information you provided at registration is correct. If you received any narcotic pain control medicine today, such as Vicodin, Morphine or Dilaudid, your coordination and judgment may be affected for a number of hours. Please do not drive or operate heavy machinery, and you may want someone to assist you at home. If you were given a prescription for narcotic medication, be aware that it is very addictive- use sparingly and only if necessary. PONCHO BOO Nov 15, 2016 22:44
--- NOTE | 2016-11-15 23:50 | RADRPT ---
PROCEDURE: Ultrasound right leg limited, non - vascular CLINICAL INDICATION: Right leg abscess or hematoma. Follow-up evaluation TECHNIQUE: Real time sonographic imaging in the area of interest of the right leg is performed and a total of 15 limon scale as well as Doppler images are submitted for review COMPARISON: 11/04/2016 FINDINGS: Interval enlargement of the irregularly marginated centrally hyperechoic collection from a prior 1 c m estimation to a current of 3.3 x 2.2 x 0.9 cm measurement. In addition, there is a second toe col lection that measures approximately 2 x 1.7 x 0.7 cm not visible previously. RPTAT:HJJR IMPRESSION: Interval enlargement of what are likely abscesses in the area of interest of the right leg, the larg est approximately 3.2 cm, previously 1 cm on the study of 11/04/2016. A second smaller abscess not evident previously is now suspected. Continued follow-up is recommended. Physician Fred Date Time Electronically viewed and signed by Physician Fred on 11/15/2016 23:50 /
--- NOTE | 2016-11-16 00:07 | RADRPT ---
PROCEDURE: XR Foot. CLINICAL INDICATION: Hematoma/abscess TECHNIQUE: AP, lateral and oblique views of the right foot was obtained. The images were reviewed on a PACS workstation. COMPARISON: 10/13/2012 FINDINGS: There is dorsal forefoot soft tissue swelling not seen on the previous study. No acute fracture or dislocation is seen. There is no specific evidence of osteomyelitis seen on plain radiographs. IMPRESSION: There is dorsal forefoot soft tissue swelling not seen on the previous study. Medial and lateral donya t soft tissue swelling appears to be increased compared to previous study. No acute fracture or dis location is seen. There is no specific evidence of osteomyelitis seen on plain radiographs. RPTAT: HJES .Duong Oshea MD, MD Date Time Electronically viewed and signed by .Duong Oshea MD, on 11/16/2016 00:07 .S/
[2016-11-16] MEDS ORDERED: CLIN300C2 PO (02:06)
[2016-11-16] MEDS ORDERED: HYDR-906 PO (02:11)
[2016-11-16 02:22] VITALS: BP 128/63; PULSE 87; RESP 20
== END 2016-11-16 02:28 | disposition home or self-care (01) ==
LOC: FTE 20:36
DX: L03.115 Cellulitis of right lower limb (principal); L02.611 Cutaneous abscess of right foot
CPT/HCPCS: 73630; 76882; 99284; Z7610

== ENCOUNTER 2017-04-17 12:27 | Emergency (ER) | END 2017-04-17 13:30 | disposition home or self-care (01) ==